=== PATIENT | female | born 1945 | race Caucasian/White ===

== ENCOUNTER 2021-05-20 08:40 | Outpatient (RCR) | payer MEDICARE, OTHER | END 2021-06-02 18:05 | disposition home or self-care (01) | LOC: OPPGERO 08:40 | DX: F33.1 Major depressive disorder, recurrent, moderate (principal); F41.1 Generalized anxiety disorder; E78.5 Hyperlipidemia, unspecified; I10 Essential (primary) hypertension; E03.9 Hypothyroidism, unspecified; M51.26 Other intervertebral disc displacement, lumbar region; G43.109 Migraine with aura, not intractable, without status migrainosus; N18.6 End stage renal disease; J44.9 Chronic obstructive pulmonary disease, unspecified; Z62.811 Personal history of psychological abuse in childhood; Z99.2 Dependence on renal dialysis; Z94.0 Kidney transplant status; Z90.5 Acquired absence of kidney; Z98.890 Other specified postprocedural states; Z63.4 Disappearance and death of family member; Z63.5 Disruption of family by separation and divorce ==